=== PATIENT | female | born 1965 | race Caucasian/White ===

== ENCOUNTER → 2025-03-08 | Day surgery (SDC) | payer OTHER ==
[2025-03-07 16:15] LABS: BASOPHILS % 0.5 % (0.0-1.0); EOSINOPHILS % 2.5 % (0.0-6.0); LYMPHOCYTES % 29.9 % (18.0-39.1); MONOCYTES % 7.6 % (4.4-11.3); NEUTROPHILS % 59.2 % (38.7-80.0); RED CELL DISTRIBUTION WIDTH 13.2 % (11.7-14.4)
[~2025-03-08] MED LIST: ACETAMINOPHEN 1000 MG/100 ML 100 ML IV ONE; ASPIRIN 325 MG TAB PO SCH; CELEBREX200 MG PO; CELECOXIB 100 MG CAP PO SCH; DOCUSATE SODIUM 100 MG CAP PO PRN; FAMOTIDINE 20 MG/2 ML VIAL IV ONE; FENTANYL CITRATE/PF 100MCG/2 ML INJ ONE; GABAPENTIN400 MG PO; HYDROCODONE/APAP 7.5MG-325MG 1 EA TAB PO PRN; LIDOCAINE HCL 2% LOCAL INJ 5 ML SDV VIAL INJ ONE; METHOCARBAMOL750 MG PO; MIDAZOLAM HCL 2 MG/2 ML VIAL ONE; OMEPRAZOLE40 MG PO; ONDANSETRON HCL INJ 2MG/ML 2ML 2 MG/ML VIAL IV PRN; PROPOFOL IV EMULSION 10 MG/ML 20 ML VIAL ONE; ROPIVACAINE/EPI/CLONIDINE/KET 50 ML SYRINGE INJ ONE; SEVOFLURANE INHAL SOLN 250 ML PEN BTL ONE; THC GUMMIES PO; VITAMIN D31250 MCG PO
[2025-03-08] MEDS: LACTATED RINGER'S 1,000 ML ONE (05:54)
[2025-03-08] MEDS: CEFAZOLIN SODIUM 2 GM ONE (05:54)
[2025-03-08] MEDS: HYDROMORPHONE 1MG/1ML INJ ONE (08:56)
[2025-03-08] MEDS: KETOROLAC TROMETHAMINE 30 MG/ML VIAL ONE (09:27)
[2025-03-08] MEDS: HYDROCODONE/APAP 7.5MG-325MG 1 EA TAB ONE (09:49)
[2025-03-08 11:00] VITALS: BP 126/63; PULSE 64; RESP 18; O2SAT 98
== END | disposition home health service (06) ==
LOC: OR 05:17
PROVIDERS: ATTEND Orthopaedic Surgery Adult Reconstructive Orthopaedic Surgery
DX: M17.11 Unilateral primary osteoarthritis, right knee (principal); K21.9 Gastro-esophageal reflux disease without esophagitis; Z01.810 Encounter for preprocedural cardiovascular examination; Z01.812 Encounter for preprocedural laboratory examination
CPT/HCPCS: 27447; 36415; 73560; 85025; 86850; 86870; 86880; 86900; 86905; 93005; 97116 ×2; 97161; 97530; 99001; C1713; C1776 ×2; J0131; J1171; J1308; J1885; J2003; J2704; J3010; J7121; J2250

== ENCOUNTER → 2025-03-13 | Outpatient (RCR) | payer OTHER ==
[~2025-03-13] MED LIST changes: -ACETAMINOPHEN 1000 MG/100 ML 100 ML IV ONE; -ASPIRIN 325 MG TAB PO SCH; -CELECOXIB 100 MG CAP PO SCH; -DOCUSATE SODIUM 100 MG CAP PO PRN; -FAMOTIDINE 20 MG/2 ML VIAL IV ONE; -FENTANYL CITRATE/PF 100MCG/2 ML INJ ONE; -HYDROCODONE/APAP 7.5MG-325MG 1 EA TAB PO PRN; -LIDOCAINE HCL 2% LOCAL INJ 5 ML SDV VIAL INJ ONE; -MIDAZOLAM HCL 2 MG/2 ML VIAL ONE; -ONDANSETRON HCL INJ 2MG/ML 2ML 2 MG/ML VIAL IV PRN; -PROPOFOL IV EMULSION 10 MG/ML 20 ML VIAL ONE; -ROPIVACAINE/EPI/CLONIDINE/KET 50 ML SYRINGE INJ ONE; -SEVOFLURANE INHAL SOLN 250 ML PEN BTL ONE
== END ==
LOC: PT 15:20
PROVIDERS: ATTEND Orthopaedic Surgery Adult Reconstructive Orthopaedic Surgery
DX: M17.11 Unilateral primary osteoarthritis, right knee (principal)